=== PATIENT | male | born 1945 | race Caucasian/White ===

== ENCOUNTER → 2020-01-23 | Outpatient (CLI) | payer MEDICARE ==
--- NOTE | 2020-01-23 11:04 | XR ---
EXAMINATION TYPE: XR shoulder complete LT, XR clavicle LT DATE OF EXAM: 01/23/2020 CLINICAL HISTORY: pain COMPARISON: NONE TECHNIQUE: Three views of the left shoulder are obtained. 2 views of the left clavicle are also subm itted. FINDINGS: There is no acute fracture/dislocation evident. Severe degenerative narrowing of the AC angel int with spur formation noted. Mild narrowing glenohumeral joint space. The visualized ribs are intac t and unremarkable. IMPRESSION: 1. There is no acute fracture or dislocation. ICD 10 NO FRACTURE, INITIAL EVALUATION
== END | disposition home or self-care (01) ==
LOC: RADMRIMAIN 10:26
PROVIDERS: ATTEND Family Medicine
DX: M25.512 Pain in left shoulder (principal)

== ENCOUNTER → 2020-01-23 | Outpatient (CLI) | payer MEDICARE ==
--- NOTE | 2020-01-23 14:35 | CT ---
EXAMINATION TYPE: CT brain wo con DATE OF EXAM: 01/23/2020 COMPARISON: None INDICATION: severe dizziness, carotid stenosis DLP: 884.2 mGycm, Automated exposure control for dose reduction was used. CONTRAST: None CT of the brain is performed utilizing 3 mm thick sections through the posterior fossa and 3 mm thick sections through the remaining calvarium. Study is performed within 24 hours of arrival to the hosp ital. No abnormal hyperdensity is present to suggest an acute intracranial hemorrhage. No mass lesion is evident. No acute infarcts are evident. Minimal periventricular white matter ischemic type changes may be pres ent. Ventricles and sulci are appropriate for the patient age. Paranasal sinuses and mastoid air cells within the [id number] are clear. CTA of the carotid vessels can be performed if additional evaluation for carotid stenosis would be of use. Ultrasound of the carotid arteries could be performed. IMPRESSIONS: 1. Minimal chronic appearing periventricular white matter ischemic changes. 2. No acute intracranial process radiographically evident.
--- NOTE | 2020-01-23 16:18 | CT ---
EXAMINATION TYPE: CT facial bones wo con DATE OF EXAM: 01/23/2020 COMPARISON: None HISTORY: severe dizziness, carotid stenosis CT DLP: 410.1 mGycm CONTRAST: None The paranasal sinuses are examined in the axial plane at 2 mm thick sections. Reconstructed images i n the coronal plane were obtained. There is a large retention cyst within the right maxillary sinus. The ethmoid air cells are clear. The sphenoid sinuses are clear. The frontal sinuses are clear. The septum is evaluated. There is septal deviation to the left. Left candelario bullosa is present. The ostiomeatal units are patent. IMPRESSIONS: 1. Retention cyst right maxillary sinus.
== END | disposition home or self-care (01) ==
LOC: RADCTMAIN 10:54
PROVIDERS: ATTEND Family Medicine
DX: I67.82 Cerebral ischemia (principal); R90.82 White matter disease, unspecified; J34.1 Cyst and mucocele of nose and nasal sinus; I65.29 Occlusion and stenosis of unspecified carotid artery; R42 Dizziness and giddiness
CPT/HCPCS: 70450; 70486

== ENCOUNTER → 2020-01-23 | Outpatient (CLI) | payer MEDICARE | END | disposition home or self-care (01) | LOC: RADCTMAIN 10:49 | PROVIDERS: ATTEND Family Medicine | DX: Z53.9 Procedure and treatment not carried out, unspecified reason (principal) ==

== ENCOUNTER 2020-06-01 10:45 | Emergency (ER) | payer MEDICARE ==
[2020-06-01 11:01] VITALS: RESP 16; TEMP 97.9
[2020-06-01] MEDS ORDERED: SODIUM CHLORIDE 0.9% 1,000 ML IV STA (11:08)
[2020-06-01] MEDS ORDERED: KETOROLAC 15 MG/ML 1 ML VIAL IVP STA (11:08)
[2020-06-01] MEDS ORDERED: ONDANSETRON 4 MG/2 ML VIAL IVP STA (11:08)
[2020-06-01] MEDS ORDERED: SODIUM CHLORIDE 0.9% 500 ML 500 ML IV STA (11:08)
[2020-06-01] MEDS ORDERED: HYDROmorphone 0.5 MG/0.5 ML SYRINGE IVP STA (11:08)
[2020-06-01 11:34] LABS: Basophils % (A) 0 %; Eosinophils # (A) 0.1 k/uL (0-0.7); Eosinophils % (A) 0 %; HCT 35.7 % (39.0-53.0); HGB 12.6 gm/dL (13.0-17.5); Lymphocytes # (A) 0.7 k/uL (1.0-4.8); Lymphocytes % (A) 7 %; MCH 31.8 pg (25.0-35.0); MCHC 35.1 g/dL (31.0-37.0); MCV 90.4 fL (80.0-100.0); Mean Platelet Volume 7.6; Monocytes # (A) 0.6 k/uL (0-1.0); Monocytes % (A) 5 %; Neutrophils # (A) 9.2 k/uL (1.3-7.7); Neutrophils % (A) 86 %; Platelet Count 352 k/uL (150-450); Poikilocytosis Slight; RBC 3.95 m/uL (4.30-5.90); RDW 14.1 % (11.5-15.5); WBC 10.7 k/uL (3.8-10.6)
[2020-06-01 11:52] LABS: ALT 20 U/L (4-49); AST 47 U/L (17-59); African American GFR (CKD) 50 (>60 ml/min/1.73 sqM); Alkaline Phosphatase 79 U/L (38-126); Amylase <30 U/L (30-110); Anion Gap 9 mmol/L; Blood Urea Nitrogen 24 mg/dL (9-20); Calcium 9.2 mg/dL (8.4-10.2); Carbon Dioxide 24 mmol/L (22-30); Chloride 103 mmol/L (98-107); Glucose 293 mg/dL (74-99); Lipase 32 U/L (23-300); Non-African American GFR(CKD) 43 (>60 ml/min/1.73 sqM); Potassium 4.5 mmol/L (3.5-5.1); Sodium 136 mmol/L (137-145); Total Bilirubin 1.1 mg/dL (0.2-1.3); Total Protein 6.9 g/dL (6.3-8.2)
--- NOTE | 2020-06-01 12:01 | CT ---
EXAMINATION TYPE: CT abdomen pelvis wo con DATE OF EXAM: 06/01/2020 COMPARISON: None INDICATION: abd pain for 24 hours DLP: 774.7 mGycm, Automated exposure control for dose reduction was used. CONTRAST: 0 mL of Isovue 300. Study performed without Oral Contrast TECHNIQUE: Axial images were obtained from above the diaphragm to the pubic rami in the axial plane a t 5 mm thick sections. Reconstructed images are reviewed on the computer in the coronal plane. FINDINGS: There are a few mesenteric lymph nodes in the left upper quadrant. The largest measures 1.3 cm. Very minimal inflammatory change may be adjacent to prominent small bowel loops Limited CT sections are obtained the lung bases. The lung bases are clear. Coronary artery calcific ation is present. CT ABDOMEN: Liver: Normal Spleen: Calcification is within the spleen Pancreas: Normal Adrenal glands: The adrenal glands are normal. Gallbladder: Normal Kidneys: No masses are evident. Mild right hydronephrosis is evident. No cysts are present. Multiple calcifications are within the bilateral kidneys. These are nonobstructing. The largest on the right is in the superior pole measuring 0.4 cm. The largest on the left is in the inferior pole measuring 0 .6 cm. There is mild right hydroureter extending to an obstructing 0.6 cm calcification. Series 201 i mage 207. Aorta: Vascular calcification is within the aorta. Inferior vena cava: Normal. CT PELVIS: Small bowel loops are slightly prominent within the left upper quadrant. Correlate for ileus. Colon a ppears normal. No evidence of obstruction is evident. The studies performed without oral contrast mcdonald iting bowel evaluation. Appendix: Not visualized. No suspicious inflammatory changes or dilated tubular structures are eviden t. Urinary bladder: Normal. Genitourinary structures: Prostate contains calcification Osseous structures: There is a small sclerotic area within the lesser trochanter of the right hip. Fa cet degenerative changes are within the lumbar spine. No suspicious lytic areas are evident. IMPRESSIONS: 1. 0.6 cm obstructing proximal right ureteral stone with mild right hydronephrosis. 2. Multiple bilateral nonobstructing renal stones. 3. Mild prominent lymphadenopathy and minimal inflammatory changes left upper quadrant of uncertain e tiology. 3. Mild focal ileus in the left upper quadrant may be present.
[2020-06-01 12:22] LABS: Appearance,Urine Clear (Clear); Bilirubin,Urine Negative (Negative); Blood,Urine Negative (Negative); Color,Urine Yellow; Glucose,Urine (UA) 3+ (Negative); Ketones,Urine Negative (Negative); Leukocyte Esterase,Urine Negative (Negative); Nitrite,Urine Negative (Negative); PH, Urine 6.5 (5.0-8.0); Protein,Urine Trace (Negative); Specific Gravity,Urine 1.018 (1.001-1.035); Urobilinogen,Urine <2.0 mg/dL (<2.0)
--- NOTE | 2020-06-01 12:35 | ED ---
Back Pain HPI - General Chief Complaint: Back Pain/Injury Stated Complaint: R Back/Flank Pain Time Seen by Provider: 06/01/20 11:02 Source: patient, RN notes reviewed Mode of arrival: ambulatory Limitations: no limitations - History of Present Illness Initial Comments: 74-year-old male presents emergency Department chief complaint of right flank pain. Patient states pain started yesterday. Patient states that severe on the right side wraps around he does have a history kidney stones but states feels different. Patient states less than he has stone he had to have a procedure to remove it. He has no complaints of dysuria hematuria diarrhea constipation as mentioned nausea no vomiting no fevers chills no chest pain or shortness breath - Related Data Home Medications Medication Instructions Recorded Confirmed Aspirin 81 mg PO DAILY 11/20/13 01/01/14 Sertraline [Zoloft] 50 mg PO HS 11/20/13 01/01/14 Simvastatin [Zocor] 40 mg PO HS 11/20/13 01/01/14 metFORMIN HCL [Glucophage] 500 mg PO BID 11/20/13 01/01/14 Albuterol Sulfate [Proair Hfa] 2 puff INHALATION DIRECTED PRN 01/01/14 01/01/14 Insulin Glargine [Lantus] 10 unit SQ HS 01/01/14 01/01/14 Previous Rx's Medication Instructions Recorded HYDROcodone/APAP 7.5-325MG [[place] 1 tab PO Q6HR PRN 3 Days #12 tab 06/01/20 7.5-325] Ondansetron Odt [Zofran Odt] 4 mg PO Q8HR PRN #14 tab 06/01/20 Tamsulosin [Flomax] 0.4 mg PO DAILY #7 cap 06/01/20 Allergies Allergy/AdvReac Type Severity Reaction Status Date / Time Penicillins AdvReac SWELLING Verified 06/01/20 10:59 AT INJECTION SITE Review of Systems ROS Statement: Those systems with pertinent positive or pertinent negative responses have been documented in the HPI. ROS Other: All systems not noted in ROS Statement are negative. Past Medical History Past Medical History: Asthma, Diabetes Mellitus, Eye Disorder, Hyperlipidemia Additional Past Medical History / Comment(s): BILAT CATARACTS, HX KIDNEY STONES History of Any Multi-Drug Resistant Organisms: None Reported Past Surgical History: Joint Replacement, Orthopedic Surgery Additional Past Surgical History / Comment(s): RT TKA, RT ROTATOR CUFF REPAIR, CYSTOSCOPY 06/2013 R/T KIDNEY STONES Past Anesthesia/Blood Transfusion Reactions: No Reported Reaction Past Psychological History: Depression Smoking Status: Never smoker Past Alcohol Use History: Occasional Past Drug Use History: None Reported General Exam Limitations: no limitations General appearance: alert, in no apparent distress Head exam: Present: atraumatic, normocephalic, normal inspection Eye exam: Present: normal appearance, PERRL, EOMI. Absent: scleral icterus, conjunctival injection, periorbital swelling ENT exam: Present: normal exam, normal oropharynx, mucous membranes moist Neck exam: Present: normal inspection. Absent: tenderness, meningismus, lymphadenopathy Respiratory exam: Present: normal lung sounds bilaterally. Absent: respiratory distress, wheezes, rales, rhonchi, stridor Cardiovascular Exam: Present: regular rate, normal rhythm, normal heart sounds. Absent: systolic murmur, diastolic murmur, rubs, gallop, clicks GI/Abdominal exam: Present: soft, normal bowel sounds. Absent: distended, tenderness, guarding, rebound, rigid Back exam: Present: CVA tenderness (R). Absent: CVA tenderness (L) Neurological exam: Present: alert, oriented X3 Skin exam: Present: warm, dry, intact, normal color. Absent: rash Course Vital Signs 06/01/20 10:59 Temperature 97.9 F Pulse Rate 67 Respiratory 16 Rate Blood Pressure 165/74 O2 Sat by Pulse 96 Oximetry Medical Decision Making - Medical Decision Making 74-year-old male presented from it flank pain CT shows evidence of a 6 mm obstru cting right ureteral calculi. Patient pain is well-controlled after minimal pain meds. Patient had a minimal dehydration, acute kidney injury. Patient is well-hydrated patient has seen neurology in the past is advised to call Wednesday morning he was given strict return parameters symptoms worsen to return. Patient was discharged with pain control, antiemetics and Flomax. - Lab Data Result diagrams: 06/01/20 11:19 06/01/20 11:19 Lab Results 06/01/20 06/01/20 06/01/20 Range/Units 11:19 11: 11:19 WBC 10.7 H (3.8-10.6) k/uL RBC 3.95 L (4.30-5.90) m/uL Hgb 12.6 L (13.0-17.5) gm/dL Hct 35.7 L (39.0-53.0) % MCV 90.4 (80.0-100.0) fL MCH 31.8 (25.0-35.0) pg MCHC 35.1 (31.0-37.0) g/dL RDW 14.1 (11.5-15.5) % Plt Count 352 (150-450) k/uL MPV 7.6 Neutrophils % 86 % Lymphocytes % 7 % Monocytes % 5 % Eosinophils % 0 % Basophils % 0 % Neutrophils # 9.2 H (1.3-7.7) k/uL Lymphocytes # 0.7 L (1.0-4.8) k/uL Monocytes # 0.6 (0-1.0) k/uL Eosinophils # 0.1 (0-0.7) k/uL Basophils # 0.0 (0-0.2) k/uL Poikilocytosis Slight Sodium 136 L (137-145) mmol/L Potassium 4.5 (3.5-5.1) mmol/L Chloride 103 (98-107) mmol/L Carbon Dioxide 24 (22-30) mmol/L Anion Gap 9 mmol/L BUN 24 H (9-20) mg/dL Creatinine 1.56 H (0.66-1.25) mg/dL Est GFR (CKD-EPI)AfAm 50 (>60 ml/min/1.73 sqM) Est GFR (CKD-EPI)NonAf 43 (>60 ml/min/1.73 sqM) Glucose 293 H (74-99) mg/dL Calcium 9.2 (8.4-10.2) mg/dL Total Bilirubin 1.1 (0.2-1.3) mg/dL AST 47 (17-59) U/L ALT 20 (4-49) U/L Alkaline Phosphatase 79 (38-126) U/L Total Protein 6.9 (6.3-8.2) g/dL Albumin 4.0 (3.5-5.0) g/dL Amylase <30 L (30-110) U/L Lipase 32 (23-300) U/L Urine Color Yellow Urine Appearance Clear (Clear) Urine pH 6.5 (5.0-8.0) Ur Specific [place] 1.018 (1.001-1.035) Urine Protein Trace H (Negative) Urine Glucose (UA) 3+ H (Negative) Urine Ketones Negative (Negative) Urine Blood Negative (Negative) Urine Nitrite Negative (Negative) Urine Bilirubin Negative (Negative) Urine Urobilinogen <2.0 (<2.0) mg/dL Ur Leukocyte Esterase Negative (Negative) Disposition Clinical Impression: Right ureteral calculus Disposition: HOME SELF-CARE Condition: Stable Instructions (If sedation given, give patient instructions): Kidney Stones (ED) Additional Instructions: Please return to the Emergency Department if symptoms worsen or any other concerns. Prescriptions: Tamsulosin [Flomax] 0.4 mg PO DAILY #7 cap HYDROcodone/APAP 7.5-325MG [[place] 7.5-325] 1 tab PO Q6HR PRN 3 Days #12 tab PRN Reason: pain Ondansetron Odt [Zofran Odt] 4 mg PO Q8HR PRN #14 tab PRN Reason: Nausea Is patient prescribed a controlled substance at d/c from ED?: Yes When asked, does pt state using other controlled substances?: No If prescribed controlled substance>3 days was MAPS reviewed?: Prescribed <3 Days If opioid is for acute pain is fill amount 7 days or less?: Yes If Rx opioid, was Start Talking consent form obtained?: Yes Referrals: Luybov Bean MD [Primary Care Provider] - 1-2 days Alberto Contreras MD [STAFF PHYSICIAN] - 1-2 days
[2020-06-01] MEDS ORDERED: TAMSULOSIN 0.4 MG CAP.ER.24H PO STA (13:09)
[2020-06-01 13:22] VITALS: BP 136/76; PULSE 86
== END 2020-06-01 13:21 | disposition home or self-care (01) ==
LOC: EC 10:45
DX: N20.1 Calculus of ureter (principal); J45.909 Unspecified asthma, uncomplicated; E11.9 Type 2 diabetes mellitus without complications; E78.5 Hyperlipidemia, unspecified; F32.9 Major depressive disorder, single episode, unspecified; Z79.4 Long term (current) use of insulin; Z79.82 Long term (current) use of aspirin; Z79.899 Other long term (current) drug therapy; Z98.42 Cataract extraction status, left eye; Z98.41 Cataract extraction status, right eye; Z88.0 Allergy status to penicillin
CPT/HCPCS: 36415; 80053; 82150; 83690; 85025; 81003; 74176; 99284; 96374; 96375 ×2; 96361; J2405; J1885; J1170

== ENCOUNTER 2020-06-04 14:04 | Day surgery (SDC) | payer MEDICARE ==
--- NOTE | 2020-06-03 21:23 | P.GSHP ---
History of Present Illness H&P Date: 06/03/20 74 yo male with a history of stones who last wednesday developed severe right flank pain. he went to the er and was found to a have a 6mm right mid to proxima ureteral stone. He is still having colic the pain has moved distally He is interested in having the stone removed. The alternatives have been discussed. He comes for a right ureteroscopy with laser lithotripsy - Constitutional Constitutional: Denies chills, Denies fever - EENT Eyes: denies blurred vision, denies pain Ears, nose, mouth and throat: Denies headache, Denies sore throat - Cardiovascular Cardiovascular: Denies chest pain, Denies shortness of breath - Respiratory Respiratory: Denies cough, Denies 7 - Gastrointestinal Gastrointestinal: Denies abdominal pain, Denies diarrhea, Denies nausea, Denies vomiting - Genitourinary (Female) Genitourinary: Denies dysuria, Denies hematuria - Genitourinary (Male) Genitourinary: Denies dysuria, Denies hematuria - Musculoskeletal Comment: left shoulder problems Musculoskeletal: Denies myalgias - Integumentary Integumentary: Denies pruritus, Denies rash - Neurological Neurological: Denies numbness, Denies weakness - Psychiatric Psychiatric: Denies anxiety, Denies depression - Endocrine Endocrine: Denies fatigue, Denies weight change Past Medical History Past Medical History: Asthma, Diabetes Mellitus, Eye Disorder, Hyperlipidemia Additional Past Medical History / Comment(s): BILAT CATARACTS, HX KIDNEY STONES History of Any Multi-Drug Resistant Organisms: None Reported Past Surgical History: Joint Replacement, Orthopedic Surgery Additional Past Surgical History / Comment(s): RT TKA, RT ROTATOR CUFF REPAIR, CYSTOSCOPY 06/2013 R/T KIDNEY STONES Past Anesthesia/Blood Transfusion Reactions: No Reported Reaction Past Psychological History: Depression Smoking Status: Never smoker Past Alcohol Use History: Occasional Past Drug Use History: None Reported Medications and Allergies Home Medications Medication Instructions Recorded Confirmed Type Aspirin 81 mg PO DAILY 11/20/13 01/01/14 History Sertraline [Zoloft] 50 mg PO HS 11/20/13 01/01/14 History Simvastatin [Zocor] 40 mg PO HS 11/20/13 01/01/14 History metFORMIN HCL [Glucophage] 500 mg PO BID 11/20/13 01/01/14 History Albuterol Sulfate [Proair Hfa] 2 puff INHALATION DIRECTED PRN 01/01/14 01/01/14 History Insulin Glargine [Lantus] 10 unit SQ HS 01/01/14 01/01/14 History HYDROcodone/APAP 7.5-325MG [[place] 1 tab PO Q6HR PRN 3 Days #12 tab 06/01/20 Rx 7.5-325] Ondansetron Odt [Zofran Odt] 4 mg PO Q8HR PRN #14 tab 06/01/20 Rx Tamsulosin [Flomax] 0.4 mg PO DAILY #7 cap 06/01/20 Rx Allergies Allergy/AdvReac Type Severity Reaction Status Date / Time Penicillins AdvReac SWELLING Verified 06/01/20 10:59 AT INJECTION SITE Surgical - Exam - General well developed, well nourished, moderate distress - Eyes PERRL - ENT no hearing loss - Neck trachea midline - Respiratory normal expansion, normal respiratory effort - Cardiovascular Rhythm: regular - Abdomen gaseous distention with ruq and flank pain - Genitourinary normal penis with no external lesions, testicles present - Neurologic normal coordination, normal sensation - Musculoskeletal normal gait, normal posture - Psychiatric oriented to time, oriented to person, oriented to place, speech is normal, memory intact Results - Imaging CT scan - abdomen: report reviewed, image reviewed CT scan - pelvis: report reviewed, image reviewed Assessment and Plan Assessment: Impression: Right ureteral stone with colic Plan: Right ureteroscopy with laser lithotripsy and possible stent
[2020-06-04] MEDS ORDERED: CIPROFLOXACIN/DEXTROSE PMX 400 MG in DEXTROSE/WATER 1 200ML.BAG IVPB STA (14:21)
[2020-06-04] MEDS ORDERED: ONDANSETRON 4 MG/2 ML VIAL IVP ONE (14:32)
[2020-06-04] MEDS ORDERED: DEXAMETHASONE SOD PHOSPHATE 4 MG/ML 1 ML VIAL IV ONE (14:32)
[2020-06-04] MEDS ORDERED: fentaNYL (PF) 50 MCG/ML 2 ML AMP ONE (14:32)
[2020-06-04] MEDS ORDERED: LIDOCAINE 1% INJ 10MG/ML (20 ML MDV) ONE (14:32)
[2020-06-04] MEDS ORDERED: ONDANSETRON 4 MG/2 ML VIAL ONE (14:32)
[2020-06-04] MEDS ORDERED: LACTATED RINGERS 1,000 ML IV ONE (14:32)
[2020-06-04] MEDS ORDERED: SUCCINYLCHOLINE CHLORIDE 100 MG/5 ML SYR IV ONE (14:32)
[2020-06-04] MEDS ORDERED: PROPOFOL 10 MG/ML 20 ML VIAL IV ONE (14:32)
[2020-06-04] MEDS ORDERED: MIDAZOLAM 2 MG/2 ML VIAL ONE (14:32)
[2020-06-04 14:34] LABS: Glucose,Whole Blood 171 mg/dL (75-99)
[2020-06-04] MEDS ORDERED: IOPAMIDOL-370 50ML BTL MISCELLANE ONE ×2 (15:00)
--- NOTE | 2020-06-04 15:36 | P.OP ---
Date of Procedure: 06/04/20 Preoperative Diagnosis: Right ureteral calculus Postoperative Diagnosis: Same Procedure(s) Performed: Cystoscopy, right retrograde pyelogram, right ureteroscopy laser lithotripsy, placement of 626 stent Anesthesia: JOYCE Surgeon: Alberto Contreras Estimated Blood Loss (ml): 10 Pathology: other (Stone) Condition: stable Disposition: PACU Indications for Procedure: The patient is 74. He has a 7 mm mid ureteral stone causing obstruction and pain. He wishes this to be removed. We discussed treatment options he comes for ureteroscopy and laser lithotripsy. Description of Procedure: Patient brought the operating suite. He is given general anesthesia. He's placed lithotomy position with sterile prep and drape. I fluoroscoped over the right mid ureter and do not see the stone distinctly. I will thus do a retrograde pyelogram. I introduced the 21-Hebrew urethral cystoscope sheath and the Foroblique lens. Urethra is normal. The prostate shows some mild obstruction with hypervascularity the prostate. I entered the bladder there is moderate trab eculation. The right orifice is identified. Within a cone-tipped catheter right retrograde pyelograms performed. The ureteral stone was seen in the ureter just above the iliac vessel. I dilate the intramural tunnel with a cone- tipped catheter. I passed a semirigid rigid scope up to the right ureteral stone. With the 200 laser probe the stone is dusted into small fragments and flushed out of the ureter. There is a fair amount of edema at the point of obstruction thus a double-J catheter replaced. Through the ureteroscope and 035 wires passed up into the kidney. . The wires backloaded on the cystoscope. The double-J catheters passed up into the right ureter where coils in the renal pelvis and the bladder the bladder strain stone fragments were collected the patient's awake and returned recovery in good condition. Be discharged home upon recovery and found the office in one week for stent removal. His condition is good.
[2020-06-04 15:49] VITALS: TEMP 98.5
--- NOTE | 2020-06-04 15:50 | FL ---
Fluoroscopy INDICATION: Pain FINDINGS: Fluoroscopy time: 37 seconds. Images obtained: 7. IMPRESSIONS: 1. Documentation of fluoroscopy.
[2020-06-04 15:58] LABS: Glucose,Whole Blood 157 mg/dL (75-99)
[2020-06-04 16:37] VITALS: RESP 20
[2020-06-04 17:40] VITALS: BP 137/72; PULSE 68
== END 2020-06-04 17:30 | disposition home or self-care (01) ==
LOC: OR 14:04
PROVIDERS: ATTEND Urology
DX: N20.1 Calculus of ureter (principal); E78.5 Hyperlipidemia, unspecified; J45.909 Unspecified asthma, uncomplicated; E11.9 Type 2 diabetes mellitus without complications; K21.9 Gastro-esophageal reflux disease without esophagitis; F32.9 Major depressive disorder, single episode, unspecified; H26.9 Unspecified cataract; Z88.0 Allergy status to penicillin; Z87.442 Personal history of urinary calculi; Z79.4 Long term (current) use of insulin; Z79.51 Long term (current) use of inhaled steroids; Z79.82 Long term (current) use of aspirin; Z79.899 Other long term (current) drug therapy; Z96.651 Presence of right artificial knee joint
CPT/HCPCS: 82365; 74420; 52356; C2625; C1758; C1769; J2250; J1100; J2405; J2001; J3010; J0330; J2704; Q9967

== ENCOUNTER 2020-10-01 07:19 | Day surgery (SDC) | payer MEDICARE ==
[2020-09-30 10:04] VITALS: BMI 25.7
[~2020-10-01 07:19] MED LIST: LACTATED RINGERS 1,000 ML IV SCH; LIDOCAINE 1% (10MG/ML) FOR IV START INTRADERMA PRN
[2020-10-01 07:37] VITALS: TEMP 97.7
[2020-10-01 07:54] LABS: Glucose,Whole Blood 227 mg/dL (75-99)
[2020-10-01] MEDS ORDERED: PROPOFOL 10 MG/ML 20 ML VIAL IV ONE (08:13)
--- NOTE | 2020-10-01 08:17 | P.GSHP ---
History of Present Illness H&P Date: 10/01/20 Chief Complaint: Anemia, GERD Patient or today for upper and lower endoscopy. Patient has been anemic recently. Requiring IV iron infusions. No rectal bleeding or melena. Last colonoscopy 7 years ago. Last EGD 15 years ago when he had a bleeding duodenal ulcer. No family history of colon cancer. Past Medical History Past Medical History: Asthma, Diabetes Mellitus, Eye Disorder, GERD/Reflux, Hyperlipidemia, Osteoarthritis (OA) Additional Past Medical History / Comment(s): BILAT CATARACTS, HX KIDNEY STONES, ANEMIA, SHORTNESS OF BREATH History of Any Multi-Drug Resistant Organisms: None Reported Past Surgical History: Joint Replacement, Orthopedic Surgery Additional Past Surgical History / Comment(s): RIGHT TOTAL KNEE , RT ROTATOR CUFF REPAIR, CYSTOSCOPY 06/2013 R/T KIDNEY STONES. LEFT PARTIAL SHOULDER SURGERY, COLONOSCOPY ,EGD Past Anesthesia/Blood Transfusion Reactions: No Reported Reaction Smoking Status: Never smoker - Past Family History Father Additional Family Medical History / Comment(s): "HEART ISSUE" Medications and Allergies Home Medications Medication Instructions Recorded Confirmed Type Sertraline [Zoloft] 50 mg PO HS 11/20/13 10/01/20 History metFORMIN HCL [Glucophage] 500 mg PO TID 11/20/13 10/01/20 History Albuterol Sulfate [Proair Hfa] 2 puff INHALATION Q4H PRN 01/01/14 10/01/20 History Insulin Glargine [Lantus] 15 unit SQ HS 01/01/14 10/01/20 History Cholecalciferol [Vitamin D3 (25 50 mcg PO DAILY 09/30/20 10/01/20 History Mcg = 1000 Iu)] Ferrous Sulfate [Iron] 325 mg PO DAILY 09/30/20 10/01/20 History Fish Oil/Dha/Epa [Fish Oil 1,200 1 each PO DAILY 09/30/20 10/01/20 History mg Fish Oil] Omeprazole [PriLOSEC] 20 mg PO AC-BRKFST 09/30/20 10/01/20 History Rosuvastatin [Crestor] 20 mg PO HS 09/30/20 10/01/20 History Ubidecarenone [Co Q-10] 200 mg PO DAILY 09/30/20 10/01/20 History Allergies Allergy/AdvReac Type Severity Reaction Status Date / Time Penicillins AdvReac SWELLING Verified 09/30/20 09:20 AT INJECTION SITE, ITCHING Surgical - Exam Vital Signs Temp Pulse Resp BP Pulse Ox 97.7 F 87 18 133/73 97 10/01/20 07:35 10/01/20 07:35 10/01/20 07:35 10/01/20 07:35 10/01/20 07:35 Physical exam: General: Well-developed, well-nourished HEENT: Normocephalic, sclerae nonicteric Abdomen: Nontender, nondistended Extremities: No edema Neuro: Alert and oriented Results - Labs Abnormal Lab Results - Last 24 Hours (Table) 10/01/20 Range/Units 07:51 POC Glucose (mg/dL) 227 H (75-99) mg/dL Assessment and Plan (1) Anemia Narrative/Plan: Will proceed with upper and lower endoscopy Current Visit: Yes Status: Acute Code(s): D64.9 - ANEMIA, UNSPECIFIED SNOMED Code(s): 441988737
--- NOTE | 2020-10-01 08:35 | P.PCN ---
Date of Procedure: 10/01/20 Procedure(s) Performed: PREOPERATIVE DIAGNOSIS: GERD, anemia POSTOPERATIVE DIAGNOSIS: Gastritis, small hiatal hernia, mild diverticulosis PROCEDURE: 1. EGD with biopsy 2. Colonoscopy ANESTHESIA: MAC SURGEON: Edgard Newman M.D. SPECIMENS: Antrum ENDOSCOPIC PROCEDURE: The patient was on the endoscopy table in the left decubitus position. The Olympus gastroscope was inserted into the oropharynx and passed under direct visualization to the region of the third portion of the duodenum. From that point the scope was slowly withdrawn inspecting all surfaces carefully. There were no neoplastic inflammatory or polypoid lesions throughout the duodenum. The pylorus was widely patent. The stomach was c arefully inspected. There was mild gastritis present. A biopsy of the antrum took place to rule out H. pylori. Retroflexion revealed a small sliding hiatal hernia. The esophagus was then carefully examined. There were no neoplastic inflammatory or polypoid lesions throughout the visualized esophagus. The patient was kept on the endoscopy table in the left decubitus position. The Olympus colonoscope was inserted into the anus and passed under direct visualization to the base of the cecum. The appendiceal orifice was visualized. From that point the scope was slowly withdrawn inspecting all surfaces carefully. There were no neoplastic inflammatory or polypoid lesions throughout the cecum, ascending, transverse, descending, sigmoid and rectum. There was mild left-sided diverticulosis noted. Digital rectal examination was normal. The patient was taken to the recovery room in stable condition per anesthesia guidelines. RECOMMENDATIONS: No endoscopic source of bleeding seen. Resume diet. Continue anemia workup.
[2020-10-01 08:46] VITALS: PULSE 77; RESP 16
[2020-10-01 08:56] VITALS: BP 131/73
[2020-10-01 08:56] LABS: Glucose,Whole Blood 242 mg/dL (75-99)
[2020-10-01] MEDS ORDERED: INSULIN ASPART (NovoLOG) 100 UNIT/ML VIAL SQ ONE (09:03)
== END 2020-10-01 09:30 | disposition home or self-care (01) ==
LOC: ORWHC2ENDO 07:19
PROVIDERS: ATTEND Surgery
DX: K57.30 Diverticulosis of large intestine without perforation or abscess without bleeding (principal); K29.50 Unspecified chronic gastritis without bleeding; K44.9 Diaphragmatic hernia without obstruction or gangrene; D50.9 Iron deficiency anemia, unspecified; K21.9 Gastro-esophageal reflux disease without esophagitis; J45.909 Unspecified asthma, uncomplicated; E11.9 Type 2 diabetes mellitus without complications; E78.5 Hyperlipidemia, unspecified; M19.90 Unspecified osteoarthritis, unspecified site; F32.9 Major depressive disorder, single episode, unspecified; Z98.890 Other specified postprocedural states; Z87.11 Personal history of peptic ulcer disease; Z87.442 Personal history of urinary calculi; Z96.651 Presence of right artificial knee joint; Z79.899 Other long term (current) drug therapy; Z79.4 Long term (current) use of insulin; Z88.0 Allergy status to penicillin; Z98.41 Cataract extraction status, right eye; Z98.42 Cataract extraction status, left eye; Z82.49 Family history of ischemic heart disease and other diseases of the circulatory system
CPT/HCPCS: 88305; 45378; 43239; J2704

== ENCOUNTER → 2021-09-29 | Outpatient (CLI) | payer MEDICARE ==
--- NOTE | 2021-09-29 12:02 | CT ---
EXAMINATION TYPE: CT chest w con DATE OF EXAM: 09/29/2021 COMPARISON: No previous CT scan is available for comparison HISTORY: SOB CT DLP: 578 mGycm Automated exposure control for dose reduction was used. TECHNIQUE: CT scan of the chest is performed with IV Contrast, patient injected with 100 mL of Isovue 300. FINDINGS: LUNGS: 4 mm nodule with slightly irregular margins seen in the right lung apex. Bilateral basal linea r pulmonary atelectasis. Unremarkable lungs otherwise. Patent trachea and main bronchi. No pleural ef fusion. MEDIASTINUM: No gross cardiomegaly. Coronary and arterial atherosclerotic calcifications. The ascendi ng aorta measures 3.9 cm. No major or central pulmonary embolism however pulmonary angiogram was not performed. No pathologically enlarged lymph nodes in the chest. No pericardial effusion. OTHER: Fatty infiltration of the pancreas. Left upper pole renal cyst without suspicious feature. Le ft glenohumeral prosthesis. Degenerative changes of the right sternoclavicular joint and right glenoh umeral articulation as well as the thoracic spine. IMPRESSION: No definite acute abnormality seen in the chest. Pulmonary angiogram was not performed. 4 mm right apical pulmonary nodule with slightly irregular margin, for follow-up CT scan in 3 months for reassessment. Other findings as detailed above.
== END | disposition home or self-care (01) ==
LOC: RADCTMAIN 10:04
PROVIDERS: ATTEND Internal Medicine Hematology & Oncology
DX: R91.1 Solitary pulmonary nodule (principal)
CPT/HCPCS: 82565; 84520; 71260; 36415; Q9967

== ENCOUNTER → 2023-04-22 | Outpatient (CLI) | payer MEDICARE ==
--- NOTE | 2023-04-22 11:52 | US ---
EXAMINATION TYPE: US carotid duplex BILAT DATE OF EXAM: 04/22/2023 COMPARISON: NONE CLINICAL INDICATION: Male, 77 years old with history of I65.29 OCCLUSION AND STENOSIS OF UNSPECIFIED CAROT; TECHNIQUE: Carotid duplex ultrasound examination. Indirect Doppler criteria was utilized. FINDINGS: EXAM MEASUREMENTS: RIGHT: Peak Systolic Velocity (PSV) cm/sec ----- Right CCA: 84.7 ----- Right ICA: 135 ----- Right ECA: 101 ICA/CCA ratio: 1.6 RIGHT: End Diastole cm/sec ----- Right CCA: 15.7 ----- Right ICA: 27.8 ----- Right ECA: 0 LEFT: Peak Systolic Velocity (PSV) cm/sec ----- Left CCA: 129 ----- Left ICA: 132 ----- Left ECA: 94.4 ICA/CCA ratio: 1.0 LEFT: End Diastole cm/sec ----- Left CCA: 26.5 ----- Left ICA: 13.3 ----- Left ECA: 21.4 VERTEBRALS (direction of flow): Right Vertebral: Antegrade Left Vertebral: Antegrade Rhythm: NORMAL RATE CLERK PASSENGER NOTES: Left Side Plaque seen: Proximal CCA, Distal CCA, CCA Bulb, ECA and ICA. Right Side Plaque seen: Extensive Mid CCA, CCA Bulb, ECA and ICA. Intimal thickness seen at Mid right CCA Increased right and left ICA velocities. IMPRESSION: Moderate atherosclerotic plaque identified within both carotid arterial systems. Approximately 50-69 % stenosis of the origins of the bilateral internal carotid artery secondary to calcified plaque base d on peak systolic velocities. Criteria for Assigning % of Stenosis / Diameter reduction (Estimation based on the indirect measurements of the internal carotid artery velocities (ICA PSV). 1. Normal (no stenosis)=ICA PSV < 125 cm/s: ratio < 2.0: ICA EDV<40 cm/s. 2. Less than 50% stenosis=ICA PSV < 125 cm/s: ratio < 2.0: ICA EDV<40 cm/s. 3. 50 to 69% stenosis=ICA PSV of 125 to 230 cm/s: ration 2.0 ? 4.0: ICA EDV 40-100 cm/s. 4. Greater than 70% stenosis to near occlusion= ICA PSV > 230 cm/s: ratio > 4.0: ICA EDV > 100 cm/s. 5. Near occlusion= ICA PSV velocities may be low or undetectable: variable ratio and ICA EDV. 6. Total occlusion=unable to detect flow.
== END | disposition home or self-care (01) ==
LOC: RADUSWWP 11:00
PROVIDERS: ATTEND Family Medicine
DX: I65.23 Occlusion and stenosis of bilateral carotid arteries (principal)
CPT/HCPCS: 93880

== ENCOUNTER → 2023-10-05 | Outpatient (CLI) | payer MEDICARE ==
--- NOTE | 2023-10-05 22:47 | US ---
EXAMINATION TYPE: US carotid duplex BILAT DATE OF EXAM: 10/05/2023 COMPARISON: US 04/22/2023 CLINICAL INDICATION: Male, 78 years old with history of I65.29 OCCLUSION AND STENOSIS OF UNSPECIFIED CAROT; Hyperlipidemia. Type 2 diabetes. TECHNIQUE: Carotid duplex ultrasound examination. Indirect Doppler criteria was utilized. FINDINGS: EXAM MEASUREMENTS: RIGHT: Peak Systolic Velocity (PSV) cm/sec ----- Right CCA: 72.4 ----- Right ICA: 138.3 ----- Right ECA: 72.4 ICA/CCA ratio: 1.9 RIGHT: End Diastole cm/sec ----- Right CCA: 20.8 ----- Right ICA: 31.7 ----- Right ECA: 0.0 LEFT: Peak Systolic Velocity (PSV) cm/sec ----- Left CCA: 84.2 ----- Left ICA: 103.0 ----- Left ECA: 88.9 ICA/CCA ratio: 1.2 LEFT: End Diastole cm/sec ----- Left CCA: 20.2 ----- Left ICA: 26.7 ----- Left ECA: 0.0 VERTEBRALS (direction of flow): Right Vertebral: Antegrade Left Vertebral: Antegrade Rhythm: Normal TYPE COPY EXAMINER NOTES: Intimal thickening seen bilaterally. Shadowing plaque seen within bilateral bulb s and bilateral prox ICA. Elevated velocity within right prox ICA. IMPRESSION: 1. Atheromatous plaquing with moderate flow-limiting stenosis between 50 and 69% right internal carot id artery. 2. No significant flow-limiting stenosis left internal carotid artery. Criteria for Assigning % of Stenosis / Diameter reduction (Estimation based on the indirect measurements of the internal carotid artery velocities (ICA PSV). 1. Normal (no stenosis)=ICA PSV < 125 cm/s: ratio < 2.0: ICA EDV<40 cm/s. 2. Less than 50% stenosis=ICA PSV < 125 cm/s: ratio < 2.0: ICA EDV<40 cm/s. 3. 50 to 69% stenosis=ICA PSV of 125 to 230 cm/s: ration 2.0 ? 4.0: ICA EDV 40-100 cm/s. 4. Greater than 70% stenosis to near occlusion= ICA PSV > 230 cm/s: ratio > 4.0: ICA EDV > 100 cm/s. 5. Near occlusion= ICA PSV velocities may be low or undetectable: variable ratio and ICA EDV. 6. Total occlusion=unable to detect flow.
== END | disposition home or self-care (01) ==
LOC: RADUSWWP 15:22
PROVIDERS: ATTEND Family Medicine
DX: I65.29 Occlusion and stenosis of unspecified carotid artery (principal)
CPT/HCPCS: 93880